=== PATIENT | female | born 1965 | race Caucasian/White ===

== ENCOUNTER 2020-07-17 10:08 | Emergency (ER) | payer SELFPAY ==
[2020-07-17 10:15] VITALS: BP 127/61; PULSE 74; TEMP 98.1; BMI 48.4
== END 2020-07-17 11:02 | disposition home or self-care (01) ==
LOC: JER 10:08
DX: U07.1 COVID-19 (principal)
CPT/HCPCS: 71046-TC-FY; 99283-25; C9803; U0003